=== PATIENT | male | born 1940 | race Caucasian/White ===

== ENCOUNTER → 2017-08-25 | Outpatient (CLI) | payer OTHER, MEDICARE ==
[~2017-08-25] MED LIST: MIDAZOLAM 2 MG/2 ML VIAL ONE; fentaNYL 100 MCG/2 ML INJ ONE
== END ==
LOC: CIMAGING 09:08
PROVIDERS: ATTEND Family Medicine
DX: M16.0 Bilateral primary osteoarthritis of hip (principal); M89.8X8 Other specified disorders of bone, other site
CPT/HCPCS: 73521; J2250; J3010